=== PATIENT | female | born 1960 | race Caucasian/White ===

== ENCOUNTER 2020-09-23 14:13 | Outpatient (CLI) | payer MEDICARE, MEDICAID, SELFPAY ==
[2020-09-23 14:28] LABS: Basophils Absolute Auto 0.1 K/mm3 (0.0-0.1); Basophils Percent Auto 0.8 % (0.2-1.2); Eosinophils Absolute Auto 0.2 K/mm3 (0-0.3); Eosinophils Percent Auto 2.4 % (0-4.4); Hematocrit 36.3 % (37.0-47.0); Lymphocytes Absolute Auto 2.34 K/mm3 (0.9-3.2); Lymphocytes Percent Auto 37.4 % (18.3-44.2); Mean Corpuscular HGB Conc 33.1 g/dl (32-36); Mean Corpuscular Hemoglobin 31.3 pg (26-34); Mean Corpuscular Volume 94.8 fl (80-100); Mean Platelet Volume 9.4 fl (7.4-10.4); Monocytes Absolute Auto 0.4 K/mm3 (0.1-0.6); Monocytes Percent Auto 6.2 % (2.6-8.5); Neutrophils Absolute Auto 3.3 K/mm3 (1.3-6.7); Neutrophils Percent Auto 53.2 % (45.5-73.1); Platelet Count Result 197 k/mm3 (150-375); Red Blood Count 3.83 M/mm3 (4.2-5.4); Red Cell Distribution Width 12.4 % (11.5-14.5); White Blood Count 6.3 K/mm3 (4.5-10.0)
[2020-09-24 07:58] LABS: Alanine Aminotransferase 10 U/L (4-35); Albumin Level 3.7 g/dL (3.5-5.1); Alkaline Phosphatase 57 U/L (38-126); Anion Gap 4 mmol/L (8-16); Aspartate Amino Transferase 21 U/L (14-36); Bilirubin,Total 0.3 mg/dL (0.2-1.3); Blood Urea Nitrogen 11 mg/dL (7-17); Calcium 8.8 mg/dL (8.4-10.2); Carbon Dioxide 32 mmol/L (22-30); Chloride 105 mmol/L (98-107); Estimated Glomerular Filt Rate 57; Glucose 87 mg/dL (65-105); Potassium 4.4 mmol/L (3.4-5.0); Sodium 141 mmol/L (137-145)
== END 2020-09-23 14:14 | disposition home or self-care (01) ==
LOC: ANHLAB 14:15
PROVIDERS: PCP Emergency Medicine; Visit Provider Internal Medicine Hematology & Oncology
DX: C34.11 Malignant neoplasm of upper lobe, right bronchus or lung (principal)
CPT/HCPCS: 36415; 80053; 85025

== ENCOUNTER 2020-09-26 09:39 | Outpatient (CLI) | payer MEDICARE, MEDICAID, SELFPAY ==
--- NOTE | ~2020-09-26 | CT_ITS ---
EXAMINATION: CT diagnostic chest w con EXAM DATE: 09/26/2020 10:34 INDICATION: Right sided non-small cell lung cancer. TECHNIQUE: Spiral CT of the chest following intravenous injection of 75 mL Omnipaque 350. Axial, cor onal and sagittal images were reviewed. Coronal maximum intensity pixel images of chest reviewed. T ryder dose-length product (DLP) for this examination was 150.48 mGy-cm. The exposure was tailored accor ding to patient size (auto mA exposure control), and iterative reconstruction (ASIR) was used as bernabe tional dose reduction technique. Comparison is made to prior examination from 06/30/2019. FINDINGS: There is moderate emphysema. Right upper lobe thin spiculated region, previously biopsied lung cancer, is unchanged. Bilobulated left lower lobe anterior segmental nodules, one appears unchan ged at 7 mm, the other has increased in size measuring 6 x 10 mm (previously round at 5mm). No new no dules. No central pulmonary emboli. There are no pleural or pericardial effusions. Tracheobronchial tree i s patent. There is no mediastinal, hilar or axillary lymphadenopathy. There is no pneumothorax. Heart normal in size. There is mild to moderate coronary arterial calcification, arterial sclerosi s. Upper abdomen is unremarkable. There is mild thoracic spondylosis without osteoblastic or osteo lytic lesions identified. IMPRESSION: 1. Bilobulated left lower lobe nodule with increase in size of one of the lobulations. Cancer versus post infectious granuloma. Attention to this on 3 month follow-up low-dose chest CT. 2. Stable biopsy-proven right upper lobe spiculation. 3. Moderate emphysema. Reviewed, dictated and finalized at location B. T DESK PERSON IMPRESSION: 1. Bilobulated left lower lobe nodule with increase in size of one of the lobu lations. Cancer versus post infectious granuloma. Attention to this on 3 month follow-up low-dose chest CT. 2. Stable biopsy-proven right upper lobe spiculation. 3. Moderate emphysema.
== END 2020-09-26 09:40 | disposition home or self-care (01) ==
PROVIDERS: PCP Emergency Medicine; Visit Provider Internal Medicine Hematology & Oncology
DX: C34.91 Malignant neoplasm of unspecified part of right bronchus or lung (principal); J43.9 Emphysema, unspecified
CPT/HCPCS: 71260; Q9967

== ENCOUNTER 2020-12-23 10:24 | Outpatient (CLI) | payer MEDICARE, MEDICAID, SELFPAY ==
[2020-12-23 10:48] LABS: Basophils Percent Auto 0.6 % (0.2-1.2); Eosinophils Absolute Auto 0.1 K/mm3 (0-0.3); Eosinophils Percent Auto 1.4 % (0-4.4); Hematocrit 35.8 % (37.0-47.0); Hemoglobin 11.9 g/dL (12.0-15.0); Immature Granulocyte Absolute 0.01 K/mm3 (0.00-0.031); Immature Granulocyte Percent A 0.1 % (0-0.5); Lymphocytes Absolute Auto 1.67 K/mm3 (0.9-3.2); Lymphocytes Percent Auto 24.2 % (18.3-44.2); Mean Corpuscular HGB Conc 33.2 g/dl (32-36); Mean Corpuscular Volume 93.2 fl (80-100); Mean Platelet Volume 9.7 fl (7.4-10.4); Monocytes Absolute Auto 0.5 K/mm3 (0.1-0.6); Monocytes Percent Auto 6.7 % (2.6-8.5); Neutrophils Absolute Auto 4.6 K/mm3 (1.3-6.7); Platelet Count Result 223 k/mm3 (150-375); Red Blood Count 3.84 M/mm3 (4.2-5.4); Red Cell Distribution Width 12.1 % (11.5-14.5); White Blood Count 6.9 K/mm3 (4.5-10.0)
[2020-12-23 10:53] LABS: Blood Urea Nitrogen 5 mg/dL (8-26); Carbon Dioxide 25 mmol/L (22-30); Chloride 102 mmol/L (98-109); Estimated Glomerular Filt Rate > 60; Glucose 93 mg/dL (70-105); Potassium 3.9 mmol/L (3.5-4.9); Sodium 142 mmol/L (138-146)
[2020-12-23 12:27] LABS: Alanine Aminotransferase 12 U/L (4-35); Albumin Level 3.7 g/dL (3.5-5.1); Alkaline Phosphatase 59 U/L (38-126); Anion Gap 9 mmol/L (8-16); Aspartate Amino Transferase 22 U/L (14-36); Bilirubin,Total 0.2 mg/dL (0.2-1.3); Blood Urea Nitrogen 6 mg/dL (7-17); Calcium 9.3 mg/dL (8.4-10.2); Carbon Dioxide 28 mmol/L (22-30); Chloride 105 mmol/L (98-107); Estimated Glomerular Filt Rate > 60; Glucose 93 mg/dL (65-105); Sodium 142 mmol/L (137-145)
== END 2020-12-23 10:25 | disposition home or self-care (01) ==
PROVIDERS: PCP Emergency Medicine; Visit Provider Internal Medicine Hematology & Oncology
DX: C34.91 Malignant neoplasm of unspecified part of right bronchus or lung (principal)
CPT/HCPCS: 36415; 80048; 80053; 85025

== ENCOUNTER 2021-01-01 14:29 | Outpatient (CLI) | payer MEDICARE, MEDICAID, SELFPAY ==
--- NOTE | ~2021-01-01 | CT_ITS ---
EXAMINATION: CT diagnostic chest w con EXAM DATE: 01/01/2021 16:00 INDICATION: Left lower lobe bilobulated nodule, granuloma versus cancer on prior CT. TECHNIQUE: Spiral CT of the chest following intravenous injection of 75 mL Omnipaque 350. Axial, cor onal and sagittal images of the chest were reviewed. Coronal maximum intensity pixel images of chest reviewed. The dose-length product (DLP) for this examination was 129.98 mGy-cm. The exposure was t ailored according to patient size (auto mA exposure control), and iterative reconstruction (ASIR) was used as additional dose reduction technique. Comparison is made to prior examination from 09/26/2020. FINDINGS: Again there is bilobulated left lower lobe anterior segmental nodule abutting the major fi ssure. This has increased in size, measuring 1.3 x 1.2 cm versus about 1 cm maximal dimension on prio r study. This is consistent with malignancy. Some increase in volume of the right upper lobe opacity, patient's treated lung cancer. Difficult to specifically measure this given irregular shaped. Could be increase in radiation related fibrosis but can't exclude breakthrough progression of cancer following treatment. Appearance to the right 1st rib adjacent to this opacity probably radiation related change. There are no pleural or pericardial effusions. Tracheobronchial tree is patent. There is no mediastinal, h ilar or axillary lymphadenopathy. There is no pneumothorax. Heart normal in size. There is mild to moderate coronary arterial calcification, arterial sclerosis. Upper abdomen is unremarkable. T here is thoracic spondylosis without osteoblastic or osteolytic lesions identified. Mild emphysema. M ild chronic compression fracture of T12. IMPRESSION: 1. Continued growth of bilobulated left lower lobe nodule consistent with malignancy, could be a 2nd primary or possibly metastatic lesion. 2. Some increase in right upper lobe opacity, could be radiation fibrosis but can't exclude progress ion of cancer. 3. Mild emphysema. Reviewed, dictated and finalized at location B. IMPRESSION: 1. Continued growth of bilobulated left lower lobe nodule consistent with lucy gnancy, could be a 2nd primary or possibly metastatic lesion. 2. Some increase in right upper lobe opacity, could be radiation fibrosis but can't exclude progression of cancer. 3. Mild emphysema.
== END 2021-01-01 14:30 | disposition home or self-care (01) ==
PROVIDERS: PCP Emergency Medicine; Visit Provider Internal Medicine Hematology & Oncology
DX: C34.91 Malignant neoplasm of unspecified part of right bronchus or lung (principal); J43.9 Emphysema, unspecified
CPT/HCPCS: 71260; Q9967

== ENCOUNTER 2021-01-21 10:46 | Outpatient (CLI) | payer MEDICARE, MEDICAID, SELFPAY ==
--- NOTE | ~2021-01-21 | PE_ITS ---
EXAMINATION: PET skull to mid thigh DATE: 01/21/2021 13:07 INDICATION: Malignant neoplasm of right lung upper lobe. TECHNIQUE: Blood glucose level was 93 mg/dL. 9.74 mCi of 18-fluorodeoxyglucose (18-FDG) was administe red i.v. Low dose computed tomography (CT) images were acquired from the base of the brain to the pro ximal thighs for attenuation correction and anatomic localization. Automated exposure control was emp loyed. Dose-length product (DLP) was 383 mGy-cm. Positron emission tomography (PET) images were acqui red in the same distribution. 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 There is increased activity in the oral cavity, oropharynx, major salivary glands, and left posterior paraspinal muscles without CT correlate, likely physiologic. There are no pathologically enlarged lymph nodes. Chest: There is mild emphysema. There are airspace opacities in right upper lobe without increased ac tivity. There is a mixed lytic and sclerotic pattern in the adjacent right first rib with maximum SUV of 2.5. There is a mixed lytic and sclerotic pattern in the adjacent right second rib without increa sed activity. There is an old fracture of right 11th rib. There is a 12 mm nodule in left lung lower lobe with maximum SUV of 4.6. There is increased activity in a normal-sized left infrahilar lymph nod e. There is a 1.4 x 2.2 cm subcarinal node with maximum SUV of 10.3. No pleural effusion. The heart s ize is normal. There are coronary artery calcifications. No pericardial effusion. There is a stent in brachiocephalic trunk. Abdomen/pelvis/proximal thighs: The liver is normal. There are gallstones in the gallbladder, which i s normal in size. The spleen, pancreas, adrenal glands, and kidneys are normal. There is an aortobife m bypass graft. There is an infraumbilical ventral hernia containing fat. There are no dilated loops of bowel. There are no pathologically enlarged lymph nodes. There is no free intraperitoneal fluid. IMPRESSION: 1. 12 mm nodule in left lung lower lobe with maximum SUV of 4.6, consistent with primary bronchogenic carcinoma versus metastatic disease. 2. Increased activity in left infrahilar and subcarinal lymph nodes, consistent with metastatic disea se. 3. 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 4. 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 Reviewed, dictated and finalized at location A. IMPRESSION: 1. 12 mm nodule in left lung lower lobe with maximum SUV of 4.6, consistent wit h primary bronchogenic carcinoma versus metastatic disease. 2. Increased activity in left infrahilar and subcarinal lymph nodes, consistent with metastatic disease. 3. Airspace opacities in right lung upper lobe without increased activity, cons istent with treated primary bronchogenic carcinoma and radiation fibrosis. 4. 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
[2021-01-21 11:18] LABS: Glucose Point of Care 93 mg/dl (65-105)
== END 2021-01-21 10:47 | disposition home or self-care (01) ==
PROVIDERS: PCP Emergency Medicine; Visit Provider Internal Medicine Hematology & Oncology
DX: C34.11 Malignant neoplasm of upper lobe, right bronchus or lung (principal); R91.8 Other nonspecific abnormal finding of lung field
CPT/HCPCS: 78815; 82948; A9552

== ENCOUNTER 2021-04-02 10:00 | Outpatient (CLI) | payer MEDICARE, MEDICAID, SELFPAY ==
[2021-04-02 10:24] LABS: Basophils Absolute Auto 0.1 K/mm3 (0.0-0.1); Basophils Percent Auto 0.8 % (0.2-1.2); Eosinophils Absolute Auto 0.3 K/mm3 (0-0.3); Eosinophils Percent Auto 3.7 % (0-4.4); Hematocrit 39.5 % (37.0-47.0); Hemoglobin 12.9 g/dL (12.0-15.0); Immature Granulocyte Absolute 0.01 K/mm3 (0.00-0.031); Immature Granulocyte Percent A 0.1 % (0-0.5); Lymphocytes Absolute Auto 1.42 K/mm3 (0.9-3.2); Lymphocytes Percent Auto 19.5 % (18.3-44.2); Mean Corpuscular HGB Conc 32.7 g/dl (32-36); Mean Platelet Volume 10.6 fl (7.4-10.4); Monocytes Absolute Auto 0.5 K/mm3 (0.1-0.6); Monocytes Percent Auto 7.1 % (2.6-8.5); Neutrophils Percent Auto 68.8 % (45.5-73.1); Platelet Count Result 184 k/mm3 (150-375); Red Blood Count 4.16 M/mm3 (4.2-5.4); Red Cell Distribution Width 11.9 % (11.5-14.5); White Blood Count 7.3 K/mm3 (4.5-10.0)
[2021-04-02 10:30] LABS: Blood Urea Nitrogen 14 mg/dL (8-26); Carbon Dioxide 29 mmol/L (22-30); Chloride 104 mmol/L (98-109); Estimated Glomerular Filt Rate > 60; Glucose 87 mg/dL (70-105); Potassium 4.1 mmol/L (3.5-4.9); Sodium 142 mmol/L (138-146)
[2021-04-02 11:32] LABS: Alanine Aminotransferase 13 U/L (4-35); Albumin Level 4.1 g/dL (3.5-5.1); Alkaline Phosphatase 76 U/L (38-126); Anion Gap 9 mmol/L (8-16); Aspartate Amino Transferase 58 U/L (14-36); Bilirubin,Total 0.5 mg/dL (0.2-1.3); Blood Urea Nitrogen 14 mg/dL (7-17); Calcium 8.9 mg/dL (8.4-10.2); Carbon Dioxide 26 mmol/L (22-30); Chloride 106 mmol/L (98-107); Estimated Glomerular Filt Rate > 60; Glucose 89 mg/dL (65-110); Potassium 4.2 mmol/L (3.4-5.0); Sodium 141 mmol/L (137-145)
== END 2021-04-02 10:01 | disposition home or self-care (01) ==
LOC: ANHLAB 10:04
PROVIDERS: PCP Emergency Medicine; Visit Provider Internal Medicine Hematology & Oncology
DX: C34.91 Malignant neoplasm of unspecified part of right bronchus or lung (principal)
CPT/HCPCS: 36415; 80048; 80053; 85025

== ENCOUNTER 2021-04-15 09:49 | Outpatient (CLI) | payer MEDICARE, MEDICAID, SELFPAY ==
--- NOTE | ~2021-04-15 | CT_ITS ---
EXAMINATION: CT diagnostic chest w con EXAM DATE: 04/15/2021 10:26 INDICATION: Malignant neoplasm of RT upper lobe of lung. TECHNIQUE: Spiral CT of the chest following intravenous injection of 75 mL Omnipaque 350. Axial, cor onal and sagittal images of the chest were reviewed. Coronal maximum intensity pixel images of chest reviewed. The dose-length product (DLP) for this examination was 145.44 mGy-cm. The exposure was t ailored according to patient size (auto mA exposure control), and iterative reconstruction (ASIR) was used as additional dose reduction technique. Comparison is made to prior examination from 01/01/2021. FINDINGS: Left lower lobe nodule measures 1.6 cm, has demonstrated mild interval increase in size co mpared to prior study, consistent with malignancy (another primary lung cancer or metastatic disease) . There is also been mild interval increase in size of right upper lobe opacity; reportedly patient had treated lung cancer in this location. There are no pleural or pericardial effusions. Tracheobro nchial tree is patent. Mild to moderate emphysema and hyperinflation There is aortopulmonary window lymph node measuring 1.4 x 1.0 cm, mildly enlarged. Increase in size o f the subcarinal lymph node now measuring 3.1 x 1.5 cm versus about 2.0 x 1.0 on prior study. Increa se in size of rounded right paratracheal lymph node measuring about 1 cm in diameter. Heart normal in size. There is mild coronary arterial calcification, arterial sclerosis. Upper abd omen is unremarkable. Interval development of subacute appearing compression fracture of the T5 courtney tebral body with mild loss of this vertebral body height, sclerosis indicating healing response. No c hange in previously seen mild compression fracture at T12. Right 1st, 2nd rib sclerosis unchanged, co uld be radiation osteitis. IMPRESSION: 1. Increase in size of left lower lobe nodule consistent with malignancy. 2. Increase in size of right upper lobe treated malignancy, scarring and possible recurrence. 3. Increase in size of mediastinal lymphadenopathy, likely metastatic disease. 4. Stable right upper lobe scarring, radiation fibrosis. 5. Emphysema, hyperinflation. 6. Subacute T5 mild compression fracture. Reviewed, dictated and finalized at location A. IMPRESSION: 1. Increase in size of left lower lobe nodule consistent with malignancy. 2. Increase in size of right upper lobe treated malignancy, scarring and possi ble recurrence. 3. Increase in size of mediastinal lymphadenopathy, likely metastatic disease. 4. Stable right upper lobe scarring, radiation fibrosis. 5. Emphysema, hyperinflation. 6. Subacute T5 mild compression fracture.
== END 2021-04-15 09:50 | disposition home or self-care (01) ==
PROVIDERS: PCP Emergency Medicine; Visit Provider Internal Medicine Hematology & Oncology
DX: C34.11 Malignant neoplasm of upper lobe, right bronchus or lung (principal); S22.059A Unspecified fracture of T5-T6 vertebra, initial encounter for closed fracture
CPT/HCPCS: 71260; Q9967